=== PATIENT | male | born 2000 | race Caucasian/White ===

== ENCOUNTER 2019-03-13 12:11 | Emergency (ER) | payer OTHER ==
[~2019-03-13] VITALS: Ht 172.7 cm; Wt 57.6 kg
[2019-03-13 13:13] VITALS: BP 114/69; Ht 172.7 cm; Wt 57.6 kg
== END 2019-03-13 14:25 | disposition home or self-care (01) ==
LOC: ED 12:11
DX: H60.02 Abscess of left external ear (principal)
CPT/HCPCS: J2001